=== PATIENT | male | born 1985 | race Caucasian/White ===

== ENCOUNTER → 2021-04-05 10:01 | Outpatient (BNVA) | payer SELFPAY | PROVIDERS: Visit Provider Emergency Medicine | DX: R10.9 Unspecified abdominal pain (principal); R73.9 Hyperglycemia, unspecified | CPT/HCPCS: 80053; 83036; 83690; 85025 ==

== ENCOUNTER 2021-04-22 09:01 | Outpatient (CLI) | payer SELFPAY ==
--- NOTE | 2021-04-22 09:30 | US_ITS ---
WS: [id number] RIGHT UPPER QUADRANT ULTRASOUND HISTORY: R10.9 - Unspecified abdominal pain COMPARISON: None available. Liver: 18.3 cm in length. Liver is moderately enlarged with mild coarsened echotexture. No intrahepat ic bile duct dilatation. Gallbladder: Normally distended gallbladder with stones. Small amount of sludge in the dependent port ion of the gallbladder. Gallbladder is elongated but not hydropic. CBD: 0.8 cm Pancreas: Not very well seen. Talus completely obscured by bowel gas. Right kidney: 11.4 cm in length. Normal size and echogenicity. No hydronephrosis or mass. Aorta and IVC: Unremarkable abdominal aorta and IVC. No ascites. US/US gall bladder [id number] IMPRESSION: 1. Cholelithiasis and gallbladder sludge. 2. Common bile duct is top normal size with no intrahepatic duct dilatation. 3. Mild hepatomegaly and hepatic steatosis.
== END 2021-04-22 09:02 | disposition home or self-care (01) ==
LOC: RAD 09:08
PROVIDERS: Visit Provider Emergency Medicine
DX: R10.9 Unspecified abdominal pain (principal); K80.20 Calculus of gallbladder without cholecystitis without obstruction; R16.0 Hepatomegaly, not elsewhere classified; K76.0 Fatty (change of) liver, not elsewhere classified
CPT/HCPCS: 76705

== ENCOUNTER → 2021-07-10 10:19 | Outpatient (BNVA) | payer OTHER, SELFPAY | PROVIDERS: Visit Provider Nurse Practitioner Family | DX: Z20.822 Contact with and (suspected) exposure to COVID-19 (principal) | CPT/HCPCS: 87635 ==